=== PATIENT | male | born 1995 | race Caucasian/White ===

== ENCOUNTER 2021-02-17 13:47 | Emergency (ER) | payer OTHER, MEDICAID, SELFPAY ==
[2021-02-17] VITALS (8 sets, daily range): BP systolic 119–127; BP diastolic 59–76; PULSE 53–70; RESP 14–22; TEMP 36.7; O2SAT 96–99; BMI 22.1
[2021-02-17 14:30] LABS: Add Manual Diff / Slide Review NO; Basophils Absolute Auto 0 /uL (0-100); Basophils Percent Auto 0.3 % (0-2); Eosinophils Absolute Auto 0 /uL (0-450); Eosinophils Percent Auto 0.2 % (2-4); Hematocrit 44.3 % (41-53); Hemoglobin 15.1 g/dL (13.5-17.5); Lymphocytes Absolute Auto 1600 /uL (1100-4500); Lymphocytes Percent Auto 17.3 % (25-40); Mean Corpuscular HGB Conc 34.1 % (30-36); Mean Corpuscular Volume 84.8 fL (80-100); Monocytes Absolute Auto 500 /uL (0-900); Monocytes Percent Auto 5.9 % (3-14); Neutrophils Absolute Auto 7000 /uL (1500-7000); Neutrophils Percent Auto 76.3 % (50-75); Platelet Count 276 X10^3/uL (150-400); Red Blood Cell Count 5.22 X10^6/uL (4.5-5.9); Red Cell Distribution Width 13.5 % (11.6-14.8); White Blood Cell Count 9.2 X10^3/uL (4.5-11.0)
[2021-02-17 14:40] LABS: Alanine Aminotransferase 33 IU/L (<50); Albumin 4.7 g/dL (3.5-5.0); Albumin Globulin Ratio 1.6 (1.0-2.8); Alkaline Phosphatase 87 U/L (38-126); Aspartate Aminotransferase 31 IU/L (17-59); BUN Creatinine Ratio 17.9 (6-22); Bilirubin Total 0.3 mg/dL (0.2-1.3); Blood Urea Nitrogen 19 mg/dL (9-20); Calcium 9.7 mg/dL (8.4-10.2); Carbon Dioxide 33 mmol/L (22-32); Chloride 101 mmol/L (98-107); Estimated Glomerular Filt Rate > 60.0 mL/min (>60); Globulin 2.9 g/dL (1.7-4.1); Glucose 112 mg/dL (70-100); HEMOLYSIS < 15 (0-50); Lipase 74 U/L (23-300); Potassium 4.2 mmol/L (3.4-5.1); Sodium 141 mmol/L (137-145); Total Protein 7.6 g/dL (6.3-8.2)
--- NOTE | 2021-02-17 14:51 | ED_ITS ---
HPI - General Adult General Chief complaint: Abdominal Pain Stated complaint: Severe Pain on Rt side, kidney issue Time Seen by Provider: 02/17/21 14:37 Source: patient Mode of arrival: Wheelchair Limitations: no limitations History of Present Illness HPI narrative: 26-year-old male. Has a [employer] shunt in place secondary to complications around the time of delivery. Is here for evaluation of pain on his right side. He is here with his mother. He has had a kidney stone in the past. He states that the pain is sharp. Lasts for a period of time and then goes away. It has happened multiple times today. No urinary symptoms. He feels like it is different from his prior history kidney stones. No fevers. No change in bowel habits. No skin changes over the area. Has not tried anything for the symptoms prior to arrival Related Data Previous Rx's Medication Instructions Recorded hydrocodone 5 mg-acetaminophen 325 1 tab PO Q4-6H PRN #10 tab 02/17/21 mg tablet ondansetron 4 mg disintegrating 4 mg PO Q6H PRN #10 tab 02/17/21 tablet Allergies Allergy/AdvReac Type Severity Reaction Status Date / Time No Known Drug Allergies Allergy Verified 02/17/21 13:57 Review of Systems Constitutional Constitutional: Denies fever(s) Gastrointestinal Gastrointestinal: Reports as per HPI and Reports system reviewed and no additional complaints, except as documented Genitourinary Genitourinary: Reports system reviewed and no additional complaints, except as documented and Reports as per HPI Musculoskeletal Musculoskeletal: Reports system reviewed and no additional complaints, except as documented Integumentary/Breasts Skin/Breast: Reports system reviewed and no additional complaints, except as documented and Reports as per HPI Hematologic/Lymphatic On Anticoagulants: No Patient History Surgical History S/P [employer] shunt Social History Smoking Status: Unknown if ever smoked Smoking Status: Unknown if ever smoked alcohol intake frequency: holidays/special occasions only Substance Use Type: does not use Exam Initial Vital Signs Initial Vital Signs: Vital Signs Temperature 98.1 F 02/17/21 13:58 Pulse Rate 70 02/17/21 13:58 Respiratory Rate 14 02/17/21 13:58 Blood Pressure 119/65 02/17/21 13:58 Pulse Oximetry 96 02/17/21 13:58 [facility] Head: normal to inspection and normocephalic Resp Effort & Inspection: normal respiratory effort Auscultation: clear to auscultation bilaterally Cardio Rate: regular rate GI Inspection: normal to inspection Palpation: soft, No firm and No tender Back/Spine/Pelvis Back: No CVA tenderness Skin General: no rashes or lesions noted Neuro General: patient alert, patient awake and moves all extremities Extrem General: normal to inspection and capillary refill normal Psych Appearance: grossly normal and well kempt Course Orders Ordered: Discontinued Medications Sodium Chloride (Normal Saline 0.9%) 1,000 mls @ 1,000 mls/hr IV BOLUS ONE Stop: 02/17/21 15:52 Last Infusion: 02/17/21 16:40 Dose: 0 mls/hr Documented by: Admin: 02/17/21 15:05 Dose: 1,000 mls/hr Documented by: RYAN Ketorolac Tromethamine (Ketorolac 30 Mg/Ml Vial) 30 mg IV NOW ONE Stop: 02/17/21 14:54 Last Admin: 02/17/21 15:04 Dose: 30 mg Documented by: RYAN Vital Signs Vital signs: Vital Signs - 8 hr 02/17/21 13:58 02/17/21 14:21 02/17/21 14:23 Temperature 98.1 F Pulse Rate 70 61 56 L Respiratory Rate 14 22 17 Blood Pressure 119/65 123/76 Pulse Oximetry 96 99 Medical Decision Making Lab Data Lab results reviewed: Yes I reviewed the patient's lab results. Result diagrams: 02/17/21 14:13 02/17/21 14:13 Labs: Lab Results 02/17/21 02/17/21 02/17/21 Range/Units 14:13 14:13 16:05 WBC 9.2 (4.5-11.0) X10^3/uL RBC 5.22 (4.5-5.9) X10^6/uL Hgb 15.1 (13.5-17.5) g/dL Hct 44.3 (41-53) % MCV 84.8 (80-100) fL MCH 29.0 (26-34) PG MCHC 34.1 (30-36) % RDW 13.5 (11.6-14.8) % Plt Count 276 (150-400) X10^3/uL Neut % (Auto) 76.3 H (50-75) % Lymph % (Auto) 17.3 L (25-40) % Hinds % (Auto) 5.9 (3-14) % Eos % (Auto) 0.2 L (2-4) % Baso % (Auto) 0.3 (0-2) % Neut # (Auto) 7000 (6764-4982) /uL Lymph # (Auto) 1600 (8186-2294) /uL Hinds # (Auto) 500 (0-900) /uL Eos # (Auto) 0 (0-450) /uL Baso # (Auto) 0 (0-100) /uL Sodium 141 (137-145) mmol/L Potassium 4.2 (3.4-5.1) mmol/L Chloride 101 (98-107) mmol/L Carbon Dioxide 33 H (22-32) mmol/L BUN 19 (9-20) mg/dL Creatinine 1.06 (0.66-1.25) mg/dL Estimated GFR > 60.0 (>60) mL/min BUN/Creatinine Ratio 17.9 (6-22) Glucose 112 H (70-100) mg/dL Calcium 9.7 (8.4-10.2) mg/dL Total Bilirubin 0.3 (0.2-1.3) mg/dL AST 31 (17-59) IU/L ALT 33 (<50) IU/L Alkaline Phosphatase 87 (38-126) U/L Total Protein 7.6 (6.3-8.2) g/dL Albumin 4.7 (3.5-5.0) g/dL Globulin 2.9 (1.7-4.1) g/dL Albumin/Globulin Ratio 1.6 (1.0-2.8) Lipase 74 (23-300) U/L Urine RBC >100/hpf H (0-5/HPF) Urine WBC 5-10/hpf H (0-5/HPF) Urine Bacteria Few (2-10) H (None) Ur Culture Indicated? Specimen cultured Urine Dip Bedside Urine Glucose Negative Bedside Urine Bilirubin - Negative Bedside Urine Ketone - Negative Urine Specific [place] 1.015 Bedside Urine Occult Blood +++ Bedside Urine pH 7.0 Bedside Urine Protein + 30 Bedside Urine Urobilinogen - Negative Bedside Urine Nitrite - Negative Bedside Urine Leukocytes - Negative Esterase Point of care testing: Urine Dip Bedside Urine Glucose Negative Bedside Urine Bilirubin - Negative Bedside Urine Ketone - Negative Urine Specific [place] 1.015 Bedside Urine Occult Blood +++ Bedside Urine pH 7.0 Bedside Urine Protein + 30 Bedside Urine Urobilinogen - Negative Bedside Urine Nitrite - Negative Bedside Urine Leukocytes - Negative Esterase MDM Narrative Medical decision making narrative: Patient's mother states that she feels like his presenting symptoms today were very similar to his prior sugars with kidney stones. She stated that after period of time he never passed that stone and he did have to have retrieval of it. His kidney function today is unremarkable. His urine does have blood but no other signs of infection. He has a benign exam currently but is also not having any symptoms. I have low suspicion for appendicitis. Low suspicion for bowel obstruction. I feel this is most likely a kidney stone. In an effort to avoid further CT scans would treat him presumptively for this. Both he and his mother were given strict return precautions. Will send home with symptom treatment. They both expressed understanding and agreement. Discharge Plan Departure Patient Disposition: Home Clinical Impression: Abdominal pain Instructions: DI for Abdominal Pain-Adult Activity Restrictions/Additional Instructions: I have a high suspicion based on your physical exam today and also your urinalysis that your symptoms are caused by a kidney stone. We will try to treat your symptoms. A prescription was sent for nausea medication and pain me dication to the pharmacy of your choice. If you start have fevers, change in pain, worsening pain, inability to take your medications please return to the emergency department for further evaluation. Prescriptions: New hydrocodone-acetaminophen 5-325 mg tablet 1 tab PO Q4-6H PRN (Reason: pain) Qty: 10 RF: 0 ondansetron 4 mg tablet,disintegrating 4 mg PO Q6H PRN (Reason: nausea and vomiting) Qty: 10 RF: 0
[2021-02-17] MEDS: KETOROLAC 30 MG/ML VIAL IV (15:04)
[2021-02-17] MEDS: SODIUM CHLORIDE 0.9% 1,000 ML 1000 ML IV (15:05)
[2021-02-17 16:27] LABS: Bacteria Urine Few (2-10); Culture Indicated Urine Specimen Cultured; RBC Urine >100/HPF (0-5/HPF); WBC Urine 5-10/HPF (0-5/HPF)
== END 2021-02-17 16:48 | disposition home or self-care (01) ==
PROVIDERS: Emergency Provider Emergency Medicine
DX: R10.9 Unspecified abdominal pain (principal); Z87.442 Personal history of urinary calculi
CPT/HCPCS: 36415; 80053; 81003; 81015; 83690; 85025; 87086; 96361; 96374; 99284; J1885

== ENCOUNTER 2022-04-10 13:52 | Emergency (ER) | payer OTHER, MEDICAID, SELFPAY ==
[2022-04-10 14:00] VITALS: BP 124/62; PULSE 85; O2SAT 96
--- NOTE | 2022-04-10 14:10 | ED.FEVER ---
HPI - Fever <ROMI Vences - Last Filed: 04/10/22 15:23> General Chief Complaint: Upper Respiratory Symptoms Stated Complaint: severe headache V/t-1 Time Seen by Provider: 04/10/22 14:04 History of Present Illness HPI Narrative: This is a 27-year-old male was brought into the emergency department with fever, nausea and vomiting which started earlier today and has had a worsening headache patient recently traveled to [place] and just returned with his parents, who are well and patient developed symptoms last night. Does not have an appetite, denies any focal pain, complains of a sore throat that started last night. Use COVID vaccinated, denies any shortness of breath or difficulty breathing. Has a low-grade fever, denies diarrhea. States that he is not been able to keep anything down today. Has not had a bowel movement today but had 1 yesterday, denies having a cough, has not had a influenza vaccine this year. Related Data Previous Rx's Medication Instructions Recorded hydrocodone 5 mg-acetaminophen 325 1 tab PO Q4-6H PRN pain #10 tabs 10/20/21 mg tablet ondansetron 4 mg disintegrating 4 mg PO Q6H PRN nausea and 02/17/21 tablet vomiting #10 tabs ondansetron 4 mg disintegrating 4 mg PO Q8H PRN nausea and 04/10/22 tablet vomiting #10 tabs Allergies Allergy/AdvReac Type Severity Reaction Status Date / Time No Known Drug Allergies Allergy Verified 02/17/21 13:57 Review of Systems <ROMI Vences - Last Filed: 04/10/22 15:23> Review of Systems ROS Unobtainable: All systems reviewed & are unremarkable except as noted in HPI and below Patient History <ROMI Vences - Last Filed: 04/10/22 15:23> Surgical History S/P [employer] shunt Social History Smoking Status: Never smoker Smoking Status: Unknown if ever smoked alcohol intake frequency: holidays/special occasions only Substance Use Type: does not use Exam <ROMI Vences - Last Filed: 04/10/22 15:23> Narrative Exam Narrative: Reviewed vitals signs and nursing notes. General: cooperative, appears uncomfortable, mildly febrile HEENT: symmetrical facial expressions, moist mucous membranes, posterior pharynx with mild erythema Cardiovascular: regular rate and rhythm, no peripheral edema, warm extremities Respiratory: normal effort, able to speak in complete sentences, without wheezing, stridor, or abnormal breath sounds. No retractions or tachypnea. GI: abdomen soft, nontender to palpation, nondistended, without masses, rebound tenderness or exquisite tenderness with exam. MSK: moves all extremities, neurovascularly intact, no weakness, normal tone Skin: brisk capillary refill, without pallor or erythema Neuro: normal speech and cognition, A&O x3, ambulatory, clear speech Psych: mental status is grossly normal, congruent mood, normal affect, pleasant and cooperative Initial Vital Signs Initial Vital Signs: Vital Signs Pulse Rate 85 04/10/22 14:00 Blood Pressure 124/62 04/10/22 14:00 Pulse Oximetry 96 04/10/22 14:00 <Nathaniel Pandey DO - Last Filed: 04/10/22 15:40> Initial Vital Signs Initial Vital Signs: Vital Signs Pulse Rate 85 04/10/22 14:00 Blood Pressure 124/62 04/10/22 14:00 Pulse Oximetry 96 04/10/22 14:00 Course <ROMI Vences - Last Filed: 04/10/22 15:23> Orders Ordered: ED Orders 04/10/22 14:08 Covid-19 + FLU A/B + RSV - PCR Stat Discontinued Medications Acetaminophen (Acetaminophen 325 Mg Tablet) 650 mg PO NOW ONE Stop: 04/10/22 14:09 Last Admin: 04/10/22 14:27 Dose: 650 mg Documented By: ISRAEL Ketorolac Tromethamine (Ketorolac 10 Mg Tablet) 10 mg PO NOW ONE Stop: 04/10/22 14:09 Last Admin: 04/10/22 14:28 Dose: 10 mg Documented By: ISRAEL Ondansetron HCl (Ondansetron 4 Mg Odt) 4 mg SL NOW ONE Stop: 04/10/22 14:09 Last Admin: 04/10/22 14:28 Dose: 4 mg Documented By: SB Vital Signs Vital signs: Vital Signs - 8 hr 04/10/22 14:14 04/10/22 14:00 04/10/22 14:00 Temperature 99.1 F Pulse Rate 87 85 Respiratory Rate 16 Blood Pressure 124/62 124/62 Pulse Oximetry 95 96 Oxygen Delivery Method Room Air Oxygen Flow Rate 0 04/10/22 14:30 04/10/22 15:00 04/10/22 15:19 Temperature Pulse Rate 92 H 76 69 Respiratory Rate Blood Pressure Pulse Oximetry 97 95 97 Oxygen Delivery Method Oxygen Flow Rate 04/10/22 15:19 Temperature Pulse Rate Respiratory Rate 16 Blood Pressure 112/64 Pulse Oximetry Oxygen Delivery Method Oxygen Flow Rate <Nathaniel Pandey DO - Last Filed: 04/10/22 15:40> Orders Ordered: ED Orders 04/10/22 14:08 Covid-19 + FLU A/B + RSV - PCR Stat Discontinued Medications Acetaminophen (Acetaminophen 325 Mg Tablet) 650 mg PO NOW ONE Stop: 04/10/22 14:09 Last Admin: 04/10/22 14:27 Dose: 650 mg Documented By: ISRAEL Ketorolac Tromethamine (Ketorolac 10 Mg Tablet) 10 mg PO NOW ONE Stop: 04/10/22 14:09 Last Admin: 04/10/22 14:28 Dose: 10 mg Documented By: ISRAEL Ondansetron HCl (Ondansetron 4 Mg Odt) 4 mg SL NOW ONE Stop: 04/10/22 14:09 Last Admin: 04/10/22 14:28 Dose: 4 mg Documented By: ISRAEL Vital Signs Vital signs: Vital Signs - 8 hr 04/10/22 14:14 04/10/22 14:00 04/10/22 14:00 Temperature 99.1 F Pulse Rate 87 85 Respiratory Rate 16 Blood Pressure 124/62 124/62 Pulse Oximetry 95 96 Oxygen Delivery Method Room Air Oxygen Flow Rate 0 04/10/22 14:30 04/10/22 15:00 04/10/22 15:19 Temperature Pulse Rate 92 H 76 69 Respiratory Rate Blood Pressure Pulse Oximetry 97 95 97 Oxygen Delivery Method Oxygen Flow Rate 04/10/22 15:19 Temperature Pulse Rate Respiratory Rate 16 Blood Pressure 112/64 Pulse Oximetry Oxygen Delivery Method Oxygen Flow Rate MDM - Fever <ROMI Vences - Last Filed: 04/10/22 15:23> Lab Data Labs: Lab Results 04/10/22 Range/Units 14:08 SARS-CoV-2 (PCR) Negative (Negative) Influenza A (RT-PCR) Flu a positive H (NEGATIVE) Influenza B (RT-PCR) Flu b negative (NEGATIVE) RSV (PCR) Negative (Negative) [facility] Narrative Medical decision making narrative: This is a 27-year-old male brought in for evaluation by his parents for fever, vomiting and headache that started last night with a sore throat and was worsening today. Patient's respiratory panel came back positive for influenza a, he is not received influenza vaccine this year. He was recently [place] just came back from traveling. Was given Zofran, Toradol p.o. with Tylenol p.o. and tolerated p.o. afterwards without vomiting. He had a mild headache but otherwise his symptoms improved afterwards. Discussed patient's findings with his parents and encouraged them to focus on hydration, was given prescription of Zofran as needed for vomiting. Recommend they follow-up with their PCP as needed or return for any worsening. Other possible diagnosis' considered include; viral URI, pneumonia, pharyngitis, acute bronchitis, allergic rhinitis, cystitis, colitis/gastroenteritis sinusitis, appendicitis, dehydration. Rest, drink plenty of fluids, NSAIDS for muscle aches and pains. Return to ED for worsening symptoms such as SOB, chest pain, inability to take adequate oral fluids, fever, or productive cough. <Nathaniel Pandey, - Last Filed: 04/10/22 15:40> Lab Data Labs: Lab Results 04/10/22 Range/Units 14:08 SARS-CoV-2 (PCR) Negative (Negative) Influenza A (RT-PCR) Flu a positive H (NEGATIVE) Influenza B (RT-PCR) Flu b negative (NEGATIVE) RSV (PCR) Negative (Negative) Discharge Plan Departure Patient Disposition: Home Clinical Impression: Influenza Instructions: Influenza Activity Restrictions/Additional Instructions: *You have been diagnosed with influenza a. Symptoms typically last 4-6 days, please use Tylenol and ibuprofen for fever and pain, encourage hydration after taking Zofran every 8 hours as needed for nausea. When he is hydrated, this wound COVID headache. Sleeping will also help with the headache. Allowed him to rest and encourage him to stay hydrated. Return for any worsening condition. I hope he feels soon. *What to do: *Please continue to take your regular medications as directed. [ x] New medication prescriptions sent to your pharmacy: [[facility] ] [ ] New medication written as a paper prescription [ ] No new medications given *Please follow up with your primary care provider in 2-3 days, call for an appointment. Let them know you were seen in the Emergency Department and that we asked that you be seen for follow-up. We will electronically transmit a record of today's note if your PCP is in our system *If you do not have a primary care provider please contact [phone] to establish care with one of the [facility] primary care providers. *Return to Emergency Department if you should have any new, worsening, or concerning symptoms, such as [fever greater than 101F, chills, worsening pain, persistent vomiting or other bothersome symptoms]. Prescriptions: New ondansetron 4 mg tablet,disintegrating 4 mg PO Q8H PRN (Reason: nausea and vomiting) Qty: 10 0RF No Action hydrocodone-acetaminophen 5-325 mg tablet 1 tab PO Q4-6H PRN (Reason: pain) Qty: 10 0RF ondansetron 4 mg tablet,disintegrating 4 mg PO Q6H PRN (Reason: nausea and vomiting) Qty: 10 0RF Referrals: Emily Gomez PA-C [Primary Care Provider] - Visit Report Forms: Patient Portal/API <Nathaniel Pandey DO - Last Filed: 04/10/22 15:40> [facility] Dr Pandey Co-Sign Statement: I was available for consultation during this patient's emergency department visit. This chart is signed by myself for administrative purposes only. I did not have direct contact with this patient during this visit. They were seen independently by the APC.
[2022-04-10 14:14] VITALS: BP 124/62; PULSE 87; RESP 16; TEMP 37.3; O2SAT 95; BMI 24.2
[2022-04-10] MEDS: ACETAMINOPHEN 325 MG TABLET 650 MG PO (14:27)
[2022-04-10] MEDS: KETOROLAC 10 MG TABLET PO (14:28)
[2022-04-10] MEDS: ONDANSETRON 4 MG ODT SL (14:28)
[2022-04-10 14:30] VITALS: PULSE 92; O2SAT 97
[2022-04-10 15:00] VITALS: PULSE 76; O2SAT 95
[2022-04-10 15:01] LABS: Influenza A - CEPHEID Flu A POSITIVE (NEGATIVE); Influenza B - CEPHEID Flu B NEGATIVE (NEGATIVE); Respiratory Syncytial Virus Negative (Negative)
[2022-04-10 15:03] LABS: COVID-19 CEPHEID 4-PLEX PCR Negative (Negative)
[2022-04-10 15:19] VITALS: BP 112/64; PULSE 69; RESP 16; O2SAT 97
== END 2022-04-10 15:25 | disposition home or self-care (01) ==
PROVIDERS: Emergency Provider Nurse Practitioner Critical Care Medicine; PCP Physician Assistant
DX: J11.1 Influenza due to unidentified influenza virus with other respiratory manifestations (principal); Z20.822 Contact with and (suspected) exposure to COVID-19
CPT/HCPCS: 0241U; 99283

== ENCOUNTER 2022-04-28 06:34 | Emergency (ER) | payer OTHER, MEDICAID, SELFPAY ==
[2022-04-28 06:49] VITALS: BP 133/87; PULSE 65; RESP 16; TEMP 36.2; O2SAT 96; BMI 22.8
--- NOTE | 2022-04-28 06:55 | PC.NURSE ---
clean catch UA collected by patient - clear yellow urine noted
--- NOTE | 2022-04-28 07:18 | PC.NURSE ---
Report given to dayshift RN team - care relinquished at this time
--- NOTE | 2022-04-28 07:27 | ED_ITS ---
HPI - Abdominal Pain General Chief Complaint: Abdominal Pain Stated Complaint: rt side abd pain, n/v Time Seen by Provider: 04/28/22 06:42 Source: patient and family Mode of arrival: Ambulatory Limitations: no limitations History of Present Illness HPI narrative: This is a 27-year-old male with history of LEAD MANUFACTURING ENGINEER shunt and prior lithotripsy for kidney stones with complaint of sudden onset of right-sided abdominal pain this morning, no fevers or chills, patient had some nausea and 1 or 2 episodes of vomiting, states normal bowel movements no black or bloody stool, no diarrhea constipation, no dysuria, urgency frequency or noted hematuria. Patient denies any back or flank pain. Pain has since resolved. Patient is not on any daily medications currently. No known drug allergies. He was ill with influenza and seen on April 10 but he and patient states his symptoms have resolved. He denies cold, cough or congestion, no chest pain or shortness of breath. Patient is accompanied by his mother today. Related Data Previous Rx's Medication Instructions Recorded hydrocodone 5 mg-acetaminophen 325 1 tab PO Q4-6H PRN pain #10 tabs 02/17/21 mg tablet ondansetron 4 mg disintegrating 4 mg PO Q6H PRN nausea and 02/17/21 tablet vomiting #10 tabs ondansetron 4 mg disintegrating 4 mg PO Q8H PRN nausea and 04/10/22 tablet vomiting #10 tabs tamsulosin 0.4 mg capsule (Flomax) 0.4 mg PO DAILY #7 caps 04/28/22 tramadol 50 mg tablet 50 mg PO Q6H PRN pain #10 tabs 04/28/22 Allergies Allergy/AdvReac Type Severity Reaction Status Date / Time No Known Drug Allergies Allergy Verified 02/17/21 13:57 Review of Systems Review of Systems ROS Unobtainable: All systems reviewed & are unremarkable except as noted in HPI and below Patient History Surgical History S/P LEAD MANUFACTURING ENGINEER shunt Social History Smoking Status: Never smoker Smoking Status: Never smoker alcohol intake frequency: holidays/special occasions only Substance Use Type: does not use Exam Narrative Exam Narrative: GENERAL: Alert and oriented, male in mild distress. Patient answers some questions defers others to his mother. HEENT: Head normocephalic, atraumatic, EOMI, pupils reactive, face symmetric, moist mucous membranes NECK: Supple, full range of motion CARDIOVASCULAR: Regular rate and rhythm without murmurs, rubs or gallops. RESPIRATORY: Breath sounds equal bilaterally, no wheezes rales or rhonchi. ABDOMEN: Soft, nontender. Nondistended. Normoactive bowel sounds all 4 quadrants. No guarding or rebound, rigidity, no mass : No CVA tenderness EXTREMITIES: Normal range of motion, no clubbing or edema. Neurovascularly intact NEUROLOGICAL: Cranial nerves II through XII grossly intact. Moving all extremities SKIN: Warm, dry, no petechiae, no rashes or lesions. Initial Vital Signs Initial Vital Signs: Vital Signs Temperature 97.2 F L 04/28/22 06:49 Pulse Rate 65 04/28/22 06:49 Respiratory Rate 16 04/28/22 06:49 Blood Pressure 133/87 04/28/22 06:49 Pulse Oximetry 96 04/28/22 06:49 Oxygen Delivery Method 04/28/22 06:49 Course Orders Ordered: Discontinued Medications Sodium Chloride (Normal Saline 0.9%) 1,000 mls @ 1,000 mls/hr IV BOLUS ONE Stop: 04/28/22 07:41 Last Infusion: 04/28/22 08:45 Dose: 0 mls/hr Documented By: Admin: 04/28/22 07:40 Dose: 1,000 mls/hr Documented By: LAKEISHA Ketorolac Tromethamine (Ketorolac 30 Mg/Ml Vial) 15 mg IV Q6H PRN PRN Reason: pain Last Admin: 04/28/22 08:44 Dose: 15 mg Documented By: LAKEISHA Ondansetron HCl (Ondansetron 4 Mg/2 Ml Inj) 4 mg IV NOW ONE Stop: 04/28/22 06:43 Last Admin: 04/28/22 07:41 Dose: 4 mg Documented By: LAKEISHA Vital Signs Vital signs: Vital Signs - 8 hr 04/28/22 06:49 04/28/22 07:41 04/28/22 07:42 Temperature 97.2 F L Pulse Rate 65 67 69 Respiratory Rate 16 Blood Pressure 133/87 Pulse Oximetry 96 99 98 Oxygen Delivery Method Room Air 04/28/22 07:42 Temperature Pulse Rate Respiratory Rate Blood Pressure 108/71 Pulse Oximetry Oxygen Delivery Method MDM - Abdominal Pain Lab Data Result diagrams: 04/28/22 07:30 04/28/22 07:30 Labs: Lab Results 04/28/22 04/28/22 04/28/22 Range/Units 06:54 07:30 07:30 WBC 11.5 H (4.5-11.0) X10^3/uL RBC 5.22 (4.5-5.9) X10^6/uL Hgb 14.3 (13.5-17.5) g/dL Hct 42.7 (41-53) % MCV 81.8 (80-100) fL MCH 27.5 (26-34) PG MCHC 33.6 (30-36) % RDW 13.9 (11.6-14.8) % Plt Count 240 (150-400) X10^3/uL Neut % (Auto) 87.0 H (50-75) % Lymph % (Auto) 7.4 L (25-40) % [place] % (Auto) 5.6 (3-14) % Eos % (Auto) 0.0 L (2-4) % Baso % (Auto) 0.0 (0-2) % Neut # (Auto) 06724 H (2371-1257) /uL Lymph # (Auto) 900 L (1414-9183) /uL [place] # (Auto) 600 (0-900) /uL Eos # (Auto) 0 (0-450) /uL Baso # (Auto) 0 (0-100) /uL Sodium 142 (137-145) mmol/L Potassium 3.8 (3.4-5.1) mmol/L Chloride 101 (98-107) mmol/L Carbon Dioxide 29 (22-32) mmol/L BUN 17 (9-20) mg/dL Creatinine 1.04 (0.66-1.25) mg/dL Estimated GFR > 60 (>60) mL/min BUN/Creatinine Ratio 16.3 (6-22) Glucose 128 H (70-100) mg/dL Calcium 9.1 (8.4-10.2) mg/dL Total Bilirubin 0.5 (0.2-1.3) mg/dL AST 24 (17-59) IU/L ALT 34 (<50) IU/L Alkaline Phosphatase 81 (38-126) U/L Total Protein 7.6 (6.3-8.2) g/dL Albumin 4.5 (3.5-5.0) g/dL Globulin 3.1 (1.7-4.1) g/dL Albumin/Globulin Ratio 1.5 (1.0-2.8) Lipase 76 (23-300) U/L Urine RBC 10-30/hpf H (0-5/HPF) Urine WBC 1-5/hpf (0-5/HPF) Ur Squamous Epith Cells 0-1 /hpf (0-5/HPF) Urine Bacteria Moderate (10-30) H (None) Urine Mucus 1+ H (Negative) Point of care testing: Urine Dip Bedside Urine Glucose Negative Bedside Urine Bilirubin - Negative Bedside Urine Ketone - Negative Urine Specific [place] 1.025 Bedside Urine Occult Blood +++ Bedside Urine pH 6.0 Bedside Urine Protein - Negative Bedside Urine Urobilinogen - Negative Bedside Urine Nitrite - Negative Bedside Urine Leukocytes - Negative Esterase Imaging Data US - abdomen: Radiologist's Impression: Close Abdomen Ultrasound (Signed) Jignesh Rapp - 04/28/22 [place] [address] Ultrasound Report Signed Patient: Adán Espino MR#: [id number] : 1995 Acct:[id number] Age/Sex: 27 / M Date of Service: 04/28/22 Loc: ED Accession Number: [id number] ?? Procedure: US abdomen complete Ordering Provider: Meron Padron D.O. PROCEDURE:? US ABDOMEN COMPLETE ? INDICATIONS:? R abd pain, upper and lower ? TECHNIQUE:? Real-time scanning was performed of the abdominal and retroperitoneal organs, with image documentation.? ? COMPARISON:? None. ? FINDINGS:? ? Liver:? Liver is normal in size and homogeneous in echotexture.? ? Gallbladder:? Gallbladder is normal in sonographic appearance without gallstones , gallbladder wall thickening, pericholecystic fluid, or abnormal sonographic Ventura's.? ? Biliary ducts:? Intrahepatic bile ducts are non-dilated.? Extrahepatic bile duct caliber measures 3.5 mm.? Normal is 6-7 mm or less in diameter, or 10 mm or less post-cholecystectomy.? ? Pancreas:? Pancreas is not well visualized secondary to overlying bowel gas ? Spleen:? Borderline splenomegaly.? Spleen measures 13 cm in length. ? Kidneys:? Right kidney measures 8.9 cm in length.? Left kidney measures 10.4 cm in length.? Right kidney demonstrates mild-moderate hydronephrosis with prominence of the proximal right ureter.? No focal renal mass seen.? No evidence for renal stones. ? Aorta:? Visualized aorta is normal in caliber at less than 3 cm.? ? Iliacs:? Proximal common iliac arteries are normal in caliber at less than 2.5 cm.? ? IVC:? Intrahepatic inferior vena cava is patent.? ? Miscellaneous:? No free abdominal fluid.? Bilateral ureteral jets are visualized.? Urinary bladder is unremarkable in sonographic appearance. ? ? IMPRESSION:? ? 1. Mild-moderate right hydronephrosis and proximal right hydroureter.? No evidence for renal stones. ? 2. Normal appearance of the liver gallbladder. ? 3. Borderline splenomegaly.? Dictated by: Jignesh Rapp M.D. on 04/28/2022 at 8:23 ? ? Approved by: Jignesh Rapp M.D. on 04/28/2022 at 8:25?? MDM Narrative Medical decision making narrative: This is a 27-year-old male who presents with complaint of abdominal pain, episode nausea vomiting that he describes as right-sided. Patient does have hematuria on microscopic, he indicates more right upper quadrant. Pain has resolved prior to my evaluation. Patient is nontender on exam throughout the abdomen. Patient's labs shows slight leukocytosis with leftward shift, CMP is negative, normal LFTs, normal renal function, glucose is 128, lipase is negative. Urine shows 10-30 RBCs, 5 WBCs, moderate bacteria, mucus is 1+, dip is negative for nitrates as well as leukocyte esterase. Patient is relatively pain-free but has very slight discomfort returning so dose of Toradol given, discussed with patient and mother. Kidney stone seems quite likely as patient has [id number] right hydro and proximal right hydroureter no evidence of renal stones noted, normal appearance of liver gallbladder and moderate splenomegaly. Stones are often not easily visualized on ultrasound suspect patient has either passed a stone or has a small 1. Plan for Flomax, pain management, culture was sent but urine does not appear infected currently and we discussed strict return precautions. Discharge Plan Departure Patient Disposition: Home Clinical Impression: Abdominal pain, Kidney stone on right side Instructions: DI for Kidney Stones Activity Restrictions/Additional Instructions: Your imaging and urine today suggest you have a kidney stone on your right side. If symptoms are controlled but persisting please follow-up with urology. Referral is included below, you will need to call to set up an appointment. Take Flomax once daily until gone. If symptoms reoccur you can take ibuprofen up to 800 mg every 8 hours and Tyle nol up to a 1000 mg every 6 hours. If in adequate you can take Ultram 1-2 tablets every 6 hours as needed. This medication can make you sleepy do not drive, perform hazardous activities or make any major decisions while taking it. This medication will make you constipated please take a stool softener once to twice daily until stools are soft and regular. Prescription sent to [facility]. Please return if you are having fevers, persistent or worsening abdominal, back or flank pain, persistent vomiting, inability urinate black or bloody stools, passing out or other new or concerning changes. Prescriptions: New tamsulosin [Flomax] 0.4 mg capsule 0.4 mg PO DAILY Qty: 7 0RF tramadol 50 mg tablet 50 mg PO Q6H PRN (Reason: pain) Qty: 10 0RF No Action ondansetron 4 mg tablet,disintegrating 4 mg PO Q8H PRN (Reason: nausea and vomiting) Qty: 10 0RF hydrocodone-acetaminophen 5-325 mg tablet 1 tab PO Q4-6H PRN (Reason: pain) Qty: 10 0RF ondansetron 4 mg tablet,disintegrating 4 mg PO Q6H PRN (Reason: nausea and vomiting) Qty: 10 0RF Referrals: Emily Gomez PA-C [Primary Care Provider] - Sushant Ortiz MD [Physician] - Stand Alone Forms: Patient Portal/API
--- NOTE | 2022-04-28 07:34 | DI.US.S_ITS ---
PROCEDURE: US ABDOMEN COMPLETE INDICATIONS: R abd pain, upper and lower TECHNIQUE: Real-time scanning was performed of the abdominal and retroperitoneal organs, with image documentation. COMPARISON: None. FINDINGS: Liver: Liver is normal in size and homogeneous in echotexture. Gallbladder: Gallbladder is normal in sonographic appearance without gallstones, gallbladder wall thickening, pericholecystic fluid, or abnormal sonographic Ventura's. Biliary ducts: Intrahepatic bile ducts are non-dilated. Extrahepatic bile duct caliber measures 3.5 mm. Normal is 6-7 mm or less in diameter, or 10 mm or less post-cholecystectomy. Pancreas: Pancreas is not well visualized secondary to overlying bowel gas Spleen: Borderline splenomegaly. Spleen measures 13 cm in length. Kidneys: Right kidney measures 8.9 cm in length. Left kidney measures 10.4 cm in length. Right kidney demonstrates mild-moderate hydronephrosis with prominence of the proximal right ureter. No focal renal mass seen. No evidence for renal stones. Aorta: Visualized aorta is normal in caliber at less than 3 cm. Iliacs: Proximal common iliac arteries are normal in caliber at less than 2.5 cm. IVC: Intrahepatic inferior vena cava is patent. Miscellaneous: No free abdominal fluid. Bilateral ureteral jets are visualized. Urinary bladder is unremarkable in sonographic appearance. IMPRESSION: 1. Mild-moderate right hydronephrosis and proximal right hydroureter. No evidence for renal stones. 2. Normal appearance of the liver gallbladder. 3. Borderline splenomegaly. Dictated by: Jignesh Rapp M.D. on 04/28/2022 at 8:23 Approved by: Jignesh Rapp M.D. on 04/28/2022 at 8:25
[2022-04-28 07:37] LABS: Add Manual Diff / Slide Review NO; Basophils Absolute Auto 0 /uL (0-100); Eosinophils Absolute Auto 0 /uL (0-450); Hematocrit 42.7 % (41-53); Hemoglobin 14.3 g/dL (13.5-17.5); Lymphocytes Absolute Auto 900 /uL (1100-4500); Lymphocytes Percent Auto 7.4 % (25-40); Mean Corpuscular HGB Conc 33.6 % (30-36); Mean Corpuscular Hemoglobin 27.5 PG (26-34); Mean Corpuscular Volume 81.8 fL (80-100); Monocytes Absolute Auto 600 /uL (0-900); Monocytes Percent Auto 5.6 % (3-14); Neutrophils Absolute Auto 10000 /uL (1500-7000); Platelet Count 240 X10^3/uL (150-400); Red Blood Cell Count 5.22 X10^6/uL (4.5-5.9); Red Cell Distribution Width 13.9 % (11.6-14.8); White Blood Cell Count 11.5 X10^3/uL (4.5-11.0)
[2022-04-28] MEDS: SODIUM CHLORIDE 0.9% 1,000 ML 1000 ML IV (07:40)
[2022-04-28 07:41] VITALS: PULSE 67; O2SAT 99
[2022-04-28] MEDS: ONDANSETRON 4 MG/2 ML INJ IV (07:41)
[2022-04-28 07:42] VITALS: BP 108/71; PULSE 69; O2SAT 98
[2022-04-28 07:47] LABS: RBC Urine 10-30/HPF (0-5/HPF); WBC Urine 1-5/HPF (0-5/HPF)
[2022-04-28 07:48] LABS: Bacteria Urine Moderate (10-30); Mucus Urine 1+ (Negative); Squamous Epithelial Cell Urine 0-1 /HPF (0-5/HPF)
[2022-04-28 07:51] LABS: Alanine Aminotransferase 34 IU/L (<50); Albumin 4.5 g/dL (3.5-5.0); Albumin Globulin Ratio 1.5 (1.0-2.8); Alkaline Phosphatase 81 U/L (38-126); Aspartate Aminotransferase 24 IU/L (17-59); BUN Creatinine Ratio 16.3 (6-22); Bilirubin Total 0.5 mg/dL (0.2-1.3); Blood Urea Nitrogen 17 mg/dL (9-20); Calcium 9.1 mg/dL (8.4-10.2); Carbon Dioxide 29 mmol/L (22-32); Chloride 101 mmol/L (98-107); Estimated Glomerular Filt Rate > 60 mL/min (>60); Globulin 3.1 g/dL (1.7-4.1); Glucose 128 mg/dL (70-100); HEMOLYSIS < 15 (0-50); Lipase 76 U/L (23-300); Potassium 3.8 mmol/L (3.4-5.1); Sodium 142 mmol/L (137-145); Total Protein 7.6 g/dL (6.3-8.2)
[2022-04-28 08:00] VITALS: PULSE 62; O2SAT 99
[2022-04-28 08:30] VITALS: BP 101/61; PULSE 61; O2SAT 97
[2022-04-28] MEDS: KETOROLAC 30 MG/ML VIAL 15 MG IV (08:44)
== END 2022-04-28 08:49 | disposition home or self-care (01) ==
PROVIDERS: Emergency Medicine; Emergency Provider Emergency Medicine; PCP Physician Assistant
DX: N20.0 Calculus of kidney (principal); R11.2 Nausea with vomiting, unspecified; R10.9 Unspecified abdominal pain; R31.9 Hematuria, unspecified
CPT/HCPCS: 36415; 76700; 80053; 81003; 81015; 83690; 85025; 87086; 96361; 96374; 96375; 99284; J1885; J2405

== ENCOUNTER 2024-11-13 08:59 | Emergency (ER) | payer OTHER, SELFPAY ==
[2024-11-13] VITALS (9 sets, daily range): BP systolic 112–130; BP diastolic 71–78; PULSE 53–72; RESP 16–20; TEMP 37; O2SAT 96–100; BMI 23.8
--- NOTE | 2024-11-13 09:42 | ED_ITS ---
HPI - Abdominal Pain General Chief Complaint: Urogenital-Male Stated Complaint: Possible Kidney stones Time Seen by Provider: 11/13/24 09:33 Source: patient and family Mode of arrival: Wheelchair History of Present Illness HPI narrative: Patient here with mother. Coming from home. Complains of sudden onset right lower quadrant pain since 5:00 a.m. today. It has been waxing and waning with nausea. No urinary complaints. No dysuria frequency urgency or hematuria. Patient has had kidney stones in the past and feels the same. He does still have his appendix. Patient in no discomfort at this time. Patient did have lithotripsy when he was 17 years old. Related Data Previous Rx's ?Medication ?Instructions ?Recorded hydrocodone 5 mg-acetaminophen 325 1 tab PO Q4-6H PRN pain #10 tabs 10/20/21 mg tablet ondansetron 4 mg disintegrating 4 mg PO Q6H PRN nausea and 02/17/21 tablet vomiting #10 tabs ondansetron 4 mg disintegrating 4 mg PO Q8H PRN nausea and 04/10/22 tablet vomiting #10 tabs tamsulosin 0.4 mg capsule (Flomax) 0.4 mg PO DAILY #7 caps 04/28/22 tramadol 50 mg tablet 50 mg PO Q6H PRN pain #10 ta bs 04/28/22 hydrocodone 5 mg-acetaminophen 325 1 tab PO Q6H PRN pa in #20 tabs 11/13/24 mg tablet ondansetron 4 mg disintegrating 4 mg PO Q6H PRN nausea and 11/13/24 tablet vomiting #20 tabs tamsulosin 0.4 mg capsule 0.4 mg PO DAILY #7 caps 10/29 10/23 Allergies Allergy/AdvReac Type Severity Reaction Status Date / Time No Known Drug Allergies Allergy Verified 11/13/24 09:10 Review of Systems Review of Systems Narrative: GENERAL: Negative chills, fatigue, malaise, fever, sweats. HEENT: Negative sinus pain, ear pain, sore throat RESPIRATORY: Negative dyspnea, cough CARDIOVASCULAR: Negative chest pain, palpitations GASTROINTESTINAL: Negative vomiting, positive nausea, abdominal pain : Negative dysuria, frequency, hematuria MUSCULOSKELETAL: Negative muscle or bony pain SKIN: Negative rash, skin lesions NEUROLOGIC: Negative weakness, numbness ROS Unobtainable: All systems reviewed & are unremarkable except as noted in HPI and below Patient History Surgical History S/P HELP DESK MANAGER shunt Social History Smoking Status: Never smoker Smoking Status: Never smoker alcohol intake frequency: holidays/special occasions only Exam Narrative Exam Narrative: GENERAL: in no distress, not toxic not dyspneic HEAD: Normocephalic. EYES: Pupils equal round ENT: Mucous membranes moist. NECK: Trachea midline. CARDIOVASCULAR: Regular rate and rhythm RESPIRATORY: Clear to auscultation. Breath sounds equal bilaterally. No wheezes, rales, or rhonchi. GASTROINTESTINAL: Abdomen soft, non-tender, abdomen is soft flat nontender no peritoneal signs no CVA tenderness no McBurney point tenderness. No pain out of portion exam. Bowel sounds are present. No guarding no rebound EXTREMITIES: No gross deformities. BACK: No flank tenderness. NEURO: AOx4. Clear speech SKIN: Warm and dry PSYCH: Not anxious, is cooperative Initial Vital Signs Initial Vital Signs: Vital Signs Pulse Rate 70 11/13/24 09:03 Pulse Oximetry 98 11/13/24 09:03 Course Orders Ordered: Discontinued Medications Sodium Chloride (Normal Saline 0.9%) 1,000 mls @ 1,000 mls/hr IV BOLUS ONE Stop: 11/13/24 10:40 Last Infusion: 11/13/24 12:08 Dose: Infused Documented By: Admin: 11/13/24 11:11 Dose: 1,000 mls/hr Documented By: RB Ketorolac Tromethamine (Ketorolac 30 Mg/Ml Vial) 15 mg IV NOW ONE Stop: 11/13/24 09:42 Last Admin: 11/13/24 11:09 Dose: 15 mg Documented By: RB Ondansetron HCl (Ondansetron 4 Mg/2 Ml Inj) 4 mg IV NOW ONE Stop: 11/13/24 09:42 Last Admin: 11/13/24 11:10 Dose: 4 mg Documented By: RB Tamsulosin HCl (Tamsulosin 0.4 Mg Capsule) 0.4 mg PO NOW ONE Stop: 11/13/24 10:14 Last Admin: 11/13/24 11:10 Dose: 0.4 mg Documented By: RB Vital Signs Vital signs: Vital Signs - 8 hr 07/16/25 09:03 11/13/24 09:04 11/13/24 09:04 Temperature Pulse Rate 70 53 L Respiratory Rate Blood Pressure 130/78 Pulse Oximetry 98 100 Oxygen Delivery Method 11/13/24 09:10 11/13/24 09:30 11/13/24 10:58 Temperature 98.6 F Pulse Rate 59 L 54 L 67 Respiratory Rate 20 Blood Pressure 130/78 Pulse Oximetry 100 100 97 Oxygen Delivery Method Room Air 11/13/24 10:59 11/13/24 10:59 11/13/24 11:00 Temperature Pulse Rate 71 72 Respiratory Rate Blood Pressure 118/74 Pulse Oximetry 97 96 Oxygen Delivery Method 11/13/24 11:00 Temperature Pulse Rate Respiratory Rate Blood Pressure 118/75 Pulse Oximetry Oxygen Delivery Method MDM - Abdominal Pain Lab Data 11/13/24 11:15 11/13/24 11:15 Labs: Lab Results 11/13/24 11/13/24 Range/Units 09:55 11:15 WBC 10.2 (4.5-11.0) X10^3/uL RBC 5.42 (4.5-5.9) X10^6/uL Hgb 15.6 (13.5-17.5) g/dL Hct 46.3 (41-53) % MCV 85.3 (80-100) fL MCH 28.8 (26-34) PG MCHC 33.7 (30-36) % RDW 13.5 (11.6-14.8) % Plt Count 262 (150-400) X10^3/uL Neut % (Auto) 89.9 H (50-75) % Lymph % (Auto) 6.1 L (25-40) % Saline % (Auto) 3.9 (3-14) % Eos % (Auto) 0.0 L (2-4) % Baso % (Auto) 0.1 (0-2) % Neut # (Auto) 9100 H (1816-6104) /uL Lymph # (Auto) 600 L (1562-3867) /uL Saline # (Auto) 400 (0-900) /uL Eos # (Auto) 0 (0-450) /uL Baso # (Auto) 0 (0-100) /uL Sodium 139 (137-145) mmol/L Potassium 3.8 (3.4-5.1) mmol/L Chloride 101 (98-107) mmol/L Carbon Dioxide 29 (22-32) mmol/L BUN 17 (9-20) mg/dL Creatinine 1.09 (0.66-1.25) mg/dL Estimated GFR > 60 (>60) mL/min BUN/Creatinine Ratio 15.6 (6-22) Glucose 103 H (70-99) mg/dL Calcium 9.7 (8.4-10.2) mg/dL Total Bilirubin 1.0 (0.2-1.3) mg/dL AST 31 (17-59) IU/L ALT 24 (<50) IU/L Alkaline Phosphatase 89 (38-126) U/L Total Protein 8.3 H (6.3-8.2) g/dL Albumin 5.3 H (3.5-5.0) g/dL Globulin 3.0 (1.7-4.1) g/dL Albumin/Globulin Ratio 1.8 (1.0-2.8) Ur Bilirubin Confirm Negative (Negative) Urine RBC 10-30/hpf H (0-5/HPF) Urine WBC 1-5/hpf (0-5/HPF) Ur Squamous Epith Cells 1-5 /hpf (0-5/HPF) Urine Bacteria None seen (None) Ur Culture Indicated? Specimen cultured Vol Urine Centrifuged 10ml (spun) Point of care testing: Urine Dip Bedside Urine Glucose Negative Bedside Urine Bilirubin + 1 Bedside Urine Ketone ++ 40 Urine Specific [place] 1.020 Bedside Urine Occult Blood +++ Bedside Urine pH 6.0 Bedside Urine Protein + 30 Bedside Urine Urobilinogen +/- 1mg Bedside Urine Nitrite - Negative Bedside Urine Leukocytes +/- [address] scan - abdomen/pelvis: Radiologist's Impression: [address] [address] [address] Scan Report Signed Patient: Adán Espino MR#: [id number] : 1995 Acct:[id number] Age/Sex: 29 / M Date of Service: 11/13/24 Loc: ED Accession Number: [id number] Procedure: CT kidney ureter bladder (KUB) Ordering Provider: Sushant Julio MD PROCEDURE: CT KIDNEY URETER BLADDER (KUB) INDICATIONS: Right flank pain TECHNIQUE: CT of the abdomen and pelvis was obtained without intravenous contrast. Coronal and sagittal reformats were performed. For radiation dose reduction, the following was used: automated exposure control, adjustment of mA and/or kV according to patient size. COMPARISON: None. FINDINGS: Image quality: Diagnostic. Lower Chest: No significant findings. ABDOMEN: Liver: No contour-deforming mass. Gallbladder: No radiopaque gallstones or wall thickening. Biliary ducts: No biliary dilation. Pancreas: No ductal dilation. Spleen: Size is within normal limits. Adrenal Glands: No adrenal nodules. Kidneys and Ureters: Mild right hydroureteronephrosis. There is a 1.0 x 0.6 x 0.8 centimeter stone with density measurements of 1538 Hounsfield units in the urinary bladder at the right UVJ. No contour-deforming mass. Stomach and Bowel: Normal colonic caliber, without significant wall thickening. The appendix is normal. Peritoneum: No abnormal intraperitoneal fluid. No free air. Ventral Wall: No significant hernia. Abdominal Nodes: No retroperitoneal or mesenteric adenopathy by size criteria. Vessels: Aorta and inferior vena cava are normal in size. PELVIS: Pelvic Organs: Unremarkable. Bladder: Unremarkable. Pelvic Nodes: No enlarged lymph nodes. Miscellaneous: No inguinal hernias are seen. Right-sided HELP DESK MANAGER shunt catheter with tip positioned in the left upper abdomen Bones: No aggressive osseous abnormality. IMPRESSION: 1.0 by 0.6 x 0.8 centimeter stone in the urinary bladder at the right UVJ with mild hydronephrosis. Dictated by: Nyla Rodriguez MD, PhD on 11/13/2024 at 9:57 Approved by: Nyla Rodriguez MD, PhD on 11/13/2024 at 10:06 [facility] Narrative Medical decision making narrative: Patient here with mother. Coming from home. Complains of sudden onset right lower quadrant pain since 5:00 a.m. today. It has been waxing and waning with nausea. No urinary complaints. No dysuria frequency urgency or hematuria. Patient has had kidney stones in the past and feels the same. He does still have his appendix. Patient in no discomfort at this time. Patient did have lithotripsy when he was 17 years old. After history and exam, CBC CMP urinalysis Toradol Zofran normal saline CT KUB [facility] Medical records reviewed: No recent visit for this complaint Differential considered: Includes but not limited to ureteral stone kidney stone appendicitis bowel obstruction cystitis Lab Test results independently reviewed as above. Pertinent findings: WBC 10.2 hemoglobin 15.6 BUN 17 creatinine 1.09 urinalysis no bacteria Imaging studies independently reviewed: CT abdomen pelvis ureteral stone at the UVJ/bladder Consultations: Referral provided for Urology Re-evaluations: 12:06 p.m.. Updated patient, father now at bedside. Patient remains pain-free. Reviewed with him findings of ureteral stone ready to pass into the bladder. Urology referral provided prescriptions provided. They desire discharge home. Discussion: Appropriate for discharge home exam is reassuring return precautions reviewed with patient. They desire discharge home. Diagnosis: Ureteral stone Discharge Plan Departure Patient Disposition: Home Clinical Impression: Right distal ureteral calculus Instructions: DI for Kidney Stones Activity Restrictions/Additional Instructions: You are being treated for a kidney stone on the right side. It is ready to pass into the bladder. Please call provided urology office today for follow up within a week. Keep well hydrated. Return if worse if any questions or concerns. No driving operating machinery when taking prescribed pain medication. Return if worse if any questions or concerns. Prescriptions: New hydrocodone-acetaminophen 5-325 mg tablet 1 tab PO Q6H PRN (Reason: pain) Qty: 20 0RF tamsulosin 0.4 mg capsule 0.4 mg PO DAILY Qty: 7 0RF ondansetron 4 mg tablet,disintegrating 4 mg PO Q6H PRN (Reason: nausea and vomiting) Qty: 20 0RF No Action ondansetron 4 mg tablet,disintegrating 4 mg PO Q8H PRN (Reason: nausea and vomiting) Qty: 10 0RF hydrocodone-acetaminophen 5-325 mg tablet 1 tab PO Q4-6H PRN (Reason: pain) Qty: 10 0RF ondansetron 4 mg tablet,disintegrating 4 mg PO Q6H PRN (Reason: nausea and vomiting) Qty: 10 0RF tamsulosin [Flomax] 0.4 mg capsule 0.4 mg PO DAILY Qty: 7 0RF tramadol 50 mg tablet 50 mg PO Q6H PRN (Reason: pain) Qty: 10 0RF Referrals: Bi Cole DO [Physician, Urology] Emily Gomez PA-C [Primary Care Provider, Medical] Stand Alone Forms: Patient Portal/API
[2024-11-13 10:58] LABS: Ictotest Urine Negative (Negative)
[2024-11-13 11:06] LABS: Culture Indicated Urine Specimen Cultured
[2024-11-13] MEDS: KETOROLAC 30 MG/ML VIAL 15 MG IV (11:09)
[2024-11-13] MEDS: TAMSULOSIN 0.4 MG CAPSULE PO (11:10)
[2024-11-13] MEDS: ONDANSETRON 4 MG/2 ML INJ IV (11:10)
[2024-11-13] MEDS: SODIUM CHLORIDE 0.9% 1,000 ML 1000 ML IV (11:11)
[2024-11-13 11:26] LABS: Add Manual Diff / Slide Review NO; Hematocrit 46.3 % (41-53); Hemoglobin 15.6 g/dL (13.5-17.5); Lymphocytes Absolute Auto 600 /uL (1100-4500); Mean Corpuscular HGB Conc 33.7 % (30-36); Mean Corpuscular Hemoglobin 28.8 PG (26-34); Mean Corpuscular Volume 85.3 fL (80-100); Platelet Count 262 X10^3/uL (150-400)
[2024-11-13 11:34] LABS: Alanine Aminotransferase 24 IU/L (<50); Albumin 5.3 g/dL (3.5-5.0); Albumin Globulin Ratio 1.8 (1.0-2.8); Alkaline Phosphatase 89 U/L (38-126); Blood Urea Nitrogen 17 mg/dL (9-20); Calcium 9.7 mg/dL (8.4-10.2); Carbon Dioxide 29 mmol/L (22-32); Chloride 101 mmol/L (98-107); Estimated Glomerular Filt Rate > 60 mL/min (>60); Globulin 3.0 g/dL (1.7-4.1); Glucose 103 mg/dL (70-99); HEMOLYSIS < 15 (0-50); Potassium 3.8 mmol/L (3.4-5.1); Sodium 139 mmol/L (137-145); Total Protein 8.3 g/dL (6.3-8.2)
== END 2024-11-13 12:21 | disposition home or self-care (01) ==
PROVIDERS: Emergency Provider Emergency Medicine; PCP Physician Assistant
DX: N20.1 Calculus of ureter (principal); Z87.442 Personal history of urinary calculi
CPT/HCPCS: 36415; 74176; 80053; 81003; 81015; 85025; 87086; 96361; 96374; 96375; 99284; J1885; J2405